=== PATIENT | female | born 1955 | race Caucasian/White ===

== ENCOUNTER → 2016-09-18 | Outpatient (CLI) | payer BC | LOC: MC.RAD 16:35 | DX: Z12.31 Encounter for screening mammogram for malignant neoplasm of breast (principal); N64.89 Other specified disorders of breast ==

== ENCOUNTER → 2016-09-20 | Outpatient (CLI) | payer BC | LOC: MC.RAD 13:58 | DX: R92.8 Other abnormal and inconclusive findings on diagnostic imaging of breast (principal) ==

== ENCOUNTER → 2017-10-07 | Outpatient (CLI) | payer BC | LOC: COL.RAD 09:39 | DX: M47.812 Spondylosis without myelopathy or radiculopathy, cervical region (principal); M48.02 Spinal stenosis, cervical region; M47.816 Spondylosis without myelopathy or radiculopathy, lumbar region; M43.8X6 Other specified deforming dorsopathies, lumbar region ==

== ENCOUNTER → 2017-10-31 | Outpatient (CLI) | payer BC | LOC: COL.LAB 14:32 | DX: Z01.89 Encounter for other specified special examinations (principal) ==

== ENCOUNTER 2017-11-29 09:00 | Outpatient (RCR) | payer BC ==
[2017-11-26] VITALS (9 sets, daily range): BP systolic 116–128; BP diastolic 74–96; PULSE 56–73; TEMP 97.2–99.7
[2017-11-27] VITALS (9 sets, daily range): BP systolic 108–118; BP diastolic 74–98; PULSE 61–83; TEMP 97.8–98.4
[2017-11-28] VITALS (7 sets, daily range): BP systolic 105–130; BP diastolic 72–89; PULSE 62–69; TEMP 98
[2017-11-29] VITALS (9 sets, daily range): BP systolic 110–142; BP diastolic 68–95; PULSE 59–67; TEMP 97.4–97.7
[~2017-11-29] VITALS: Ht 177.8 cm; Wt 83.0 kg
[~2017-11-29 09:00] MED LIST: ADVIL200 MG PO; B-121000 MCG PO; NEURONTIN100 MG/CAP PO; THERA-D RAPID2000 IU PO
[2017-11-30] VITALS (9 sets, daily range): BP systolic 110–126; BP diastolic 69–83; PULSE 57–72; TEMP 97.6–98.3
== END 2017-11-30 14:30 | disposition home or self-care (01) ==
LOC: EUO 09:00 → MEDICAL 11-30 10:00 → EUO 11-30 14:30
DX: G62.9 Polyneuropathy, unspecified (principal); M79.89 Other specified soft tissue disorders
CPT/HCPCS: OP; J1569

== ENCOUNTER 2018-05-12 15:45 | Outpatient (RCR) | payer BC ==
[2018-05-14] MEDS ORDERED: LIORESAL 1010 MG/TAB PO (15:48)
[2018-05-14] MEDS ORDERED: VITAMIN D 50,1.25 MG PO (15:50)
== END 2018-05-14 | disposition home or self-care (01) ==
LOC: WSPT
DX: G61.0 Guillain-Barre syndrome (principal)

== ENCOUNTER 2018-10-28 17:00 | Outpatient (RCR) | payer BC ==
[~2018-10-28 17:00] MED LIST changes: +LIORESAL 1010 MG/TAB PO; +VITAMIN D 50,1.25 MG PO
== END 2018-11-17 | disposition home or self-care (01) ==
LOC: MKS.ESL.PT
DX: G61.0 Guillain-Barre syndrome (principal)

== ENCOUNTER → 2018-12-25 | Outpatient (CLI) | payer BC | LOC: MC.RAD 13:53 | DX: Z12.31 Encounter for screening mammogram for malignant neoplasm of breast (principal) ==

== ENCOUNTER → 2019-02-23 | Outpatient (RCR) | payer BC | LOC: MKS.ESL.PT | DX: G61.0 Guillain-Barre syndrome (principal) ==

== ENCOUNTER 2019-03-31 15:30 | Outpatient (RCR) | payer BC | END 2019-06-16 | disposition still patient (30) | LOC: MKS.ESL.PT | DX: G61.0 Guillain-Barre syndrome (principal) ==

== ENCOUNTER 2019-05-26 15:45 | Outpatient (RCR) | payer BC | END 2019-05-27 | disposition home or self-care (01) | LOC: MKS.ESL.PT | DX: G61.0 Guillain-Barre syndrome (principal) ==

== ENCOUNTER → 2020-01-27 | Outpatient (CLI) | payer BC | LOC: MC.RAD 17:24 | DX: Z12.31 Encounter for screening mammogram for malignant neoplasm of breast (principal) ==

== ENCOUNTER → 2020-09-30 11:09 | Outpatient (RCR) | payer BC | LOC: MKS.ESL.PT 05-17 08:00 | DX: G61.0 Guillain-Barre syndrome (principal) ==

== ENCOUNTER 2020-12-15 15:00 | Outpatient (RCR) | payer BC | END 2020-12-29 | disposition still patient (30) | LOC: MKS.ESL.PT | DX: S76.312A Strain of muscle, fascia and tendon of the posterior muscle group at thigh level, left thigh, initial encounter (principal) ==

== ENCOUNTER 2021-02-24 10:36 | Day surgery (SDC) | payer BC ==
[~2021-02-24] VITALS: Ht 177.8 cm; Wt 91.5 kg
[2021-02-24] MEDS ORDERED: ASPIRIN 81M81 MG/TA2 PO (11:24)
[2021-02-24 11:46] VITALS: BP 128/88; PULSE 77; TEMP 97.2
[2021-02-24 13:06] VITALS: BP 107/67; PULSE 74
--- NOTE | 2021-02-24 13:06 | NUR ---
Patient returns to [facility] per cart after having colonoscopy and transfers from cart to recliner. Temp 97.2 and room air sats 96%. Eating toast and drinking cranberry juice. Denies nausea or abdominal pain.
[2021-02-24 13:20] VITALS: BP 119/90; PULSE 69
--- NOTE | 2021-02-24 13:20 | NUR ---
Resting and talking with family. Offers no complaints of pain or nausea.
[2021-02-24 13:35] VITALS: BP 124/81; PULSE 62
--- NOTE | 2021-02-24 13:35 | NUR ---
IV discontinued and site is free of redness or swelling. Room air sats 99%.
--- NOTE | 2021-02-24 13:51 | NUR ---
Dismissal instructions given and voices understanding of these. IV was discontinued and site is free of redness or swelling.
--- NOTE | 2021-02-24 13:55 | NUR ---
Dismissed to home driven by spouse and taken to the car by this RN and assisted into vehicle with dismissal instructions in hand.
== END 2021-02-24 13:55 | disposition home or self-care (01) ==
LOC: SDCO 10:36
DX: Z12.11 Encounter for screening for malignant neoplasm of colon (principal); K62.89 Other specified diseases of anus and rectum; Z79.899 Other long term (current) drug therapy
CPT/HCPCS: J2704; J7030

== ENCOUNTER → 2021-03-03 | Outpatient (CLI) | payer BC ==
[~2021-03-03] MED LIST changes: +ASPIRIN 81M81 MG/TA2 PO
== END ==
LOC: MC.RAD 07:45
DX: Z12.31 Encounter for screening mammogram for malignant neoplasm of breast (principal)

== ENCOUNTER → 2022-03-07 | Outpatient (CLI) | payer BC | LOC: MC.RAD 06:55 | DX: Z12.31 Encounter for screening mammogram for malignant neoplasm of breast (principal) ==

== ENCOUNTER 2023-06-14 09:00 | Outpatient (RCR) | payer MEDICARE, OTHER | END 2023-06-15 | disposition home or self-care (01) | LOC: WSPT | DX: R26.89 Other abnormalities of gait and mobility (principal) ==

== ENCOUNTER 2023-09-13 09:00 | Outpatient (RCR) | payer MEDICARE, OTHER | END 2023-09-15 | disposition home or self-care (01) | LOC: WSPT | DX: R26.9 Unspecified abnormalities of gait and mobility (principal) ==

== ENCOUNTER 2023-10-11 09:00 | Outpatient (RCR) | payer MEDICARE, OTHER | END 2023-10-16 | disposition home or self-care (01) | LOC: WSPT | DX: R26.9 Unspecified abnormalities of gait and mobility (principal) ==

== ENCOUNTER 2023-11-08 09:00 | Outpatient (RCR) | payer MEDICARE, OTHER | END 2023-11-14 | disposition home or self-care (01) | LOC: WSPT | DX: R26.89 Other abnormalities of gait and mobility (principal); R29.3 Abnormal posture ==

== ENCOUNTER 2023-12-13 09:00 | Outpatient (RCR) | payer MEDICARE, OTHER | END 2023-12-15 | disposition home or self-care (01) | LOC: WSPT | DX: R26.9 Unspecified abnormalities of gait and mobility (principal) ==

== ENCOUNTER → 2024-05-27 | Outpatient (CLI) | payer MEDICARE, OTHER | LOC: MC.RAD 08:26 | DX: Z12.31 Encounter for screening mammogram for malignant neoplasm of breast (principal) ==

== ENCOUNTER → 2024-06-30 | Outpatient (CLI) | payer MEDICARE, OTHER | LOC: COL.RAD 06:58 | DX: N39.41 Urge incontinence (principal) ==